=== PATIENT | male | born 1995 | race American Indian/Alaskan Native ===

== ENCOUNTER 2019-05-26 14:23 | Emergency (ER) | payer MEDICAID ==
--- NOTE | 2019-05-26 15:07 | Event Note ---
Date of service: 05/26/19 Face to Face: This is a 24-year-old gentleman who is not known to this provider previously. Patient has a history of right lower quadrant colostomy, reports a history of Crohn's disease, presenting to the ER with a complaint of nausea, vomiting, weakness and abdominal cramping. He reports that hydromorphone is typically the only pain medication which improved his symptoms. Upon my initial evaluation, patient resting comfortably, on a cell phone, and his stretcher, noted to be sending messages and playing video games on his cellular phone. He is afebrile with reassuring vital signs, clinically sober, abdomen soft and benign, without rebound, guarding or peritoneal signs. Ostomy is examined with nurse repair armature winder helper, no significant abnormalities noted. Patient at this point time does not meet criteria for administration of opioid therapy. He is suitable for a trial of nonnarcotic therapy, including Pepcid, Zofran, Carafate, CT scan abdomen pelvis ordered. Urinalysis is reviewed and appreciated, patient does not endorse any irritative or obstructive urinary symptoms. If objective imaging studies unremarkable, which I anticipate, the patient should be suitable to follow up with an outpatient literacy tutor. Vital Signs 05/26/19 05/26/19 14:54 15:01 Temperature 99.5 F 99.5 F Pulse Rate 94 H 94 H Respiratory 17 17 Rate Blood Pressure 111/74 Blood Pressure 111/74 [Left] O2 Sat by Pulse 98 98 Oximetry Lab Results 05/26/19 05/26/19 05/26/19 Range/Units 15:33 15:33 15:48 WBC 9.3 (4.5-11.0) K/mm3 RBC 4.28 (3.65-5.03) M/mm3 Hgb 13.1 (11.8-15.2) gm/dl Hct 39.2 (35.5-45.6) % MCV 92 (84-94) fl MCH 31 (28-32) pg MCHC 34 (32-34) % RDW 15.0 (13.2-15.2) % Plt Count 205 (140-440) K/mm3 Sodium 136 L (137-145) mmol/L Potassium 5.0 (3.6-5.0) mmol/L Chloride 100.0 (98-107) mmol/L Carbon Dioxide 22 (22-30) mmol/L Anion Gap 19 mmol/L BUN 19 (9-20) mg/dL Creatinine 0.9 (0.8-1.5) mg/dL Estimated GFR > 60 ml/min BUN/Creatinine Ratio 21 % Glucose 101 H (75-100) mg/dL Calcium 9.0 (8.4-10.2) mg/dL Total Bilirubin 0.50 (0.1-1.2) mg/dL AST 14 (5-40) units/L ALT 7 (7-56) units/L Alkaline Phosphatase 51 (35-129) units/L Total Protein 8.5 H (6.3-8.2) g/dL Albumin 3.9 (3.9-5) g/dL Albumin/Globulin Ratio 0.8 % Lipase 29 (13-60) units/L Urine Color Yellow (Yellow) Urine Turbidity Slightly-cloudy (Clear) Urine pH 6.0 (5.0-7.0) Ur Specific [place] 1.026 (1.003-1.030) Urine Protein 100 mg/dl (Negative) mg/dL Urine Glucose (UA) Neg (Negative) mg/dL Urine Ketones 20 (Negative) mg/dL Urine Blood Sm (Negative) Urine Nitrite Neg (Negative) Urine Bilirubin Neg (Negative) Urine Urobilinogen < 2.0 (<2.0) mg/dL Ur Leukocyte Esterase Neg (Negative) Urine WBC (Auto) 4.0 (0.0-6.0) /HPF Urine RBC (Auto) 7.0 (0.0-6.0) /HPF U Epithel Cells (Auto) 1.0 (0-13.0) /HPF Urine Bacteria (Auto) 1+ (Negative) /HPF Urine Mucus 3+ /HPF Urine Opiates Screen Urine Methadone Screen Ur Barbiturates Screen Ur Phencyclidine Scrn Ur Amphetamines Screen U Benzodiazepines Scrn Urine Cocaine Screen 05/26/19 Range/Units 15:48 WBC (4.5-11.0) K/mm3 RBC (3.65-5.03) M/mm3 Hgb (11.8-15.2) gm/dl Hct (35.5-45.6) % MCV (84-94) fl MCH (28-32) pg MCHC (32-34) % RDW (13.2-15.2) % Plt Count (140-440) K/mm3 Sodium (137-145) mmol/L Potassium (3.6-5.0) mmol/L Chloride (98-107) mmol/L Carbon Dioxide (22-30) mmol/L Anion Gap mmol/L BUN (9-20) mg/dL Creatinine (0.8-1.5) mg/dL Estimated GFR ml/min BUN/Creatinine Ratio % Glucose (75-100) mg/dL Calcium (8.4-10.2) mg/dL Total Bilirubin (0.1-1.2) mg/dL AST (5-40) units/L ALT (7-56) units/L Alkaline Phosphatase (35-129) units/L Total Protein (6.3-8.2) g/dL Albumin (3.9-5) g/dL Albumin/Globulin Ratio % Lipase (13-60) units/L Urine Color (Yellow) Urine Turbidity (Clear) Urine pH (5.0-7.0) Ur Specific [place] (1.003-1.030) Urine Protein (Negative) mg/dL Urine Glucose (UA) (Negative) mg/dL Urine Ketones (Negative) mg/dL Urine Blood (Negative) Urine Nitrite (Negative) Urine Bilirubin (Negative) Urine Urobilinogen (<2.0) mg/dL Ur Leukocyte Esterase (Negative) Urine WBC (Auto) (0.0-6.0) /HPF Urine RBC (Auto) (0.0-6.0) /HPF U Epithel Cells (Auto) (0-13.0) /HPF Urine Bacteria (Auto) (Negative) /HPF Urine Mucus /HPF Urine Opiates Screen Presumptive negative Urine Methadone Screen Presumptive negative Ur Barbiturates Screen Presumptive negative Ur Phencyclidine Scrn Presumptive negative Ur Amphetamines Screen Presumptive negative U Benzodiazepines Scrn Presumptive negative Urine Cocaine Screen Presumptive negative
[2019-05-26] MEDS ORDERED: SODIUM CHLORIDE 0.9% 1000 ML 1,000 ML IV ONE (15:28)
[2019-05-26 15:53] LABS: Hematocrit 39.2 % (35.5-45.6); Hemoglobin 13.1 gm/dl (11.8-15.2); Mean Corpuscular HGB Conc 34 % (32-34); Mean Corpuscular Volume 92 fl (84-94); Platelet Count 205 K/mm3 (140-440); Red Blood Count 4.28 M/mm3 (3.65-5.03)
[2019-05-26 15:57] LABS: Bacteria,Urine 1+ /HPF (Negative); Bilirubin,Urine NEG (Negative); Blood,Urine SM (Negative); Color,Urine Yellow (Yellow); Mucus,Urine 3+ /HPF; Urobilinogen,Urine < 2.0 mg/dL (<2.0)
[2019-05-26] MEDS ORDERED: ONDANSETRON 4 MG ODT TAB PO PRN (15:57)
[2019-05-26] MEDS ORDERED: SUCRALFATE 1 GM/10 ML ORAL LIQD PO ONE (16:00)
[2019-05-26] MEDS ORDERED: FAMOTIDINE 20 MG/2 ML INJ IV ONE (16:00)
[2019-05-26 16:01] LABS: Amphetamine Screen,Urine PRESUMPTIVE NEGATIVE; Benzodiazepines Screen,Urine PRESUMPTIVE NEGATIVE; Cocaine Screen,Urine PRESUMPTIVE NEGATIVE; Methadone Screen,Urine PRESUMPTIVE NEGATIVE; Opiate Screen,Urine PRESUMPTIVE NEGATIVE
--- NOTE | 2019-05-26 16:01 | Emergency Department Report ---
<PHUONG LOPEZ - Last Filed: 05/26/19 16:21> ED N/V/D HPI - General Chief complaint: Nausea/Vomiting/Diarrhea Stated complaint: N/V/DEHYDRATION Time Seen by Provider: 05/26/19 15:06 Source: patient, EMS Mode of arrival: Wheelchair Limitations: No Limitations - History of Present Illness Initial comments: 24-year-old -[place] male(standing in the bonilla without any any acute distress. Patient comes in for nausea and intermittently vomiting is intermittent. Patient reports intermittent dizziness, intermittent hot flashes intermittent weakness. Patient reports he has had a subjective fever. His last dose of Tylenol was yesterday. Patient reports that he has a colostomy bag on the right side secondary to Crohn's disease. Patient states that his surgeon is Dr. Lezama and he has an appointment on 06/02/2019. MD complaint: nausea, vomiting, abdominal pain Onset/Timin -: week(s) Description of Vomiting: food contents Associated Abdominal Pain: Yes Location: [place] Radiation: none Severity: mild Pain Scale: 5 Quality: aching Consistency: intermittent Improves with: none Worsens with: none Associated Symptoms: fever/chills, nausea/vomiting (immediately) - Related Data Previous Rx's Medication Instructions Recorded Last Taken Type Acetaminophen [Non-Aspirin Extra 500 mg PO Q6HR PRN #30 tablet 05/26/19 Unknown Rx Strength] Ciprofloxacin HCl [Ciprofloxacin 500 mg PO Q12HR #14 tab 05/26/19 Unknown Rx TAB] Famotidine [Pepcid] 20 mg PO BID PRN #20 tablet 05/26/19 Unknown Rx Rasheeda Root [Rasheeda] 250 mg PO QID PRN #30 capsule 05/26/19 Unknown Rx Ibuprofen [Motrin] 600 mg PO Q8H PRN #30 tablet 05/26/19 Unknown Rx Metoclopramide [Reglan] 10 mg PO QID PRN #30 tablet 05/26/19 Unknown Rx Promethazine HCl [Phenergan SUPPOS] 25 mg RC Q6HR PRN #15 supp.rect 05/26/19 Unknown Rx Allergies Allergy/AdvReac Type Severity Reaction Status Date / Time morphine Allergy Hives Verified 05/26/19 20:08 tramadol Allergy Hives Verified 05/26/19 20:08 ED Past Medical Hx - Past Medical History Previous Medical History?: Yes Additional medical history: crohn's disease - Surgical History Past Surgical History?: Yes Additional Surgical History: ostomy - Social History Smoking Status: Never Smoker Substance Use Type: Marijuana - Medications Home Medications: Home Medications Medication Instructions Recorded Confirmed Last Taken Type Acetaminophen [Non-Aspirin Extra 500 mg PO Q6HR PRN #30 tablet 05/26/19 Unknown Rx Strength] Ciprofloxacin HCl [Ciprofloxacin 500 mg PO Q12HR #14 tab 05/26/19 Unknown Rx TAB] Famotidine [Pepcid] 20 mg PO BID PRN #20 tablet 05/26/19 Unknown Rx Rasheeda Root [Rasheeda] 250 mg PO QID PRN #30 capsule 05/26/19 Unknown Rx Ibuprofen [Motrin] 600 mg PO Q8H PRN #30 tablet 05/26/19 Unknown Rx Metoclopramide [Reglan] 10 mg PO QID PRN #30 tablet 05/26/19 Unknown Rx Promethazine HCl [Phenergan SUPPOS] 25 mg RC Q6HR PRN #15 supp.rect 05/26/19 Unknown Rx ED Physical Exam - General Limitations: No Limitations General appearance: alert, in no apparent distress - Head Head exam: Present: atraumatic, normocephalic - Eye Eye exam: Present: normal appearance - ENT ENT exam: Present: mucous membranes moist - Neck Neck exam: Present: normal inspection, full ROM. Absent: tenderness, lymphadenopathy - Respiratory Respiratory exam: Present: normal lung sounds bilaterally. Absent: respiratory distress - Cardiovascular Cardiovascular Exam: Present: regular rate, normal rhythm. Absent: systolic murmur, diastolic murmur, rubs, gallop - GI/Abdominal GI/Abdominal exam: Present: soft, tenderness (no grimacing), normal bowel sounds, other (colostomy bag on right abdomen ostomy looks nice and pink transfer necrosis. Midline abdominal scar). Absent: distended, guarding, rebound - Rectal Rectal exam: Present: deferred - Back Exam Back exam: Present: normal inspection, full ROM. Absent: tenderness, vertebral tenderness - Neurological Exam Neurological exam: Present: alert, oriented X3, normal gait - Psychiatric Psychiatric exam: Present: normal mood - Expanded Psychiatric Exam Expanded Focused psych exam: Present: other (disorganized thought) - Skin Skin exam: Present: warm, dry, intact, normal color. Absent: rash ED Medical Decision Making - Lab Data Result diagrams: 05/26/19 15:33 05/26/19 15:33 - Medical Decision Making 24-year-old -[place] male(standing in the bonilla without any any acute distress. Patient comes in for nausea and intermittently vomiting is intermittent. Patient reports intermittent dizziness, intermittent hot flashes intermittent weakness. Patient reports he has had a subjective fever. His last dose of Tylenol was yesterday. Patient reports that he has a colostomy bag on the right side secondary to Crohn's disease. Patient states that his surgeon is Dr. Lezama and he has an appointment on 06/02/2019. Patient has been evaluated by this provider. Patient exhibits some concerns for hyperemesis from cannabis. UDS screening has been ordered as well as urinalysis and labs. CT scan of abdomen with contrast is ordered. Discussed patient's case with supervising doctor . ED Disposition Clinical Impression: History of Crohn's disease Disposition: DC- TO HOME OR SELFCARE Condition: Stable Additional Instructions: Take the antibiotic as directed, nausea medication as needed and directed. Advance diet as tolerated. Drink plenty of fluids. Do not take metformin medication for the next 2 days, if patient takes his medication. Recommend continuing current outpatient medications otherwise, and recommend the patient follow up with a primary care doctor or gimp buttonhole machine operator within the next 5-7 days. Urine toxicology screen showed the presence of marijuana. if The patient is consuming marijuana, or having secondhand exposure to marijuana, recommend avoidance of exposure to marijuana, as this may exacerbate her underlying symptoms. CT scan abdomen and pelvis showed no acute or emergent findings, however, incidental findings were noted. Please have your primary care doctor or gimp buttonhole machine operator contact the medical records department to obtain CT scan report and follow-up on an nonemergent incidental findings. Return to the emergency room right away with it, worsened or different symptoms, or symptoms not present on the initial emergency room evaluation. Prescriptions: Ciprofloxacin HCl [Ciprofloxacin TAB] 500 mg PO Q12HR #14 tab Rasheeda Root [Rasheeda] 250 mg PO QID PRN #30 capsule PRN Reason: Nausea Ibuprofen [Motrin] 600 mg PO Q8H PRN #30 tablet PRN Reason: Pain Acetaminophen [Non-Aspirin Extra Strength] 500 mg PO Q6HR PRN #30 tablet PRN Reason: Pain , Severe (7-10) Famotidine [Pepcid] 20 mg PO BID PRN #20 tablet PRN Reason: Pain , Severe (7-10) Promethazine HCl [Phenergan SUPPOS] 25 mg RC Q6HR PRN #15 supp.rect PRN Reason: Nausea Metoclopramide [Reglan] 10 mg PO QID PRN #30 tablet PRN Reason: Nausea Referrals: [facility] [Provider Group] - 3-5 Days <CLARITZAPAT - Last Filed: 05/26/19 23:22> ED Review of Systems ROS: Stated complaint: N/V/DEHYDRATION Other details as noted in HPI ED Course Vital Signs 05/26/19 05/26/19 05/26/19 14:54 15:01 19:16 Temperature 99.5 F 99.5 F 100.1 F H Pulse Rate 94 H 94 H 89 Respiratory 17 17 15 Rate Blood Pressure 111/74 Blood Pressure 111/74 109/69 [Left] O2 Sat by Pulse 98 98 98 Oximetry - Reevaluation(s) Reevaluation #1: 05/26/19 19:30 CT scan abdomen and pelvis reviewed and appreciated. No active vomiting noted. Incidental findings noted. Patient very engaged with his cellular phone. We'll start him empirically on antibiotics, he'll need to follow up with his outpatient gimp buttonhole machine operator. At this point in time, patient does not meet criteria for admission or hospitalization. 05/26/19 19:35 ED Medical Decision Making - Lab Data Result diagrams: 05/26/19 15:33 05/26/19 15:33 Vital Signs 05/26/19 05/26/19 05/26/19 14:54 15:01 19:16 Temperature 99.5 F 99.5 F 100.1 F H Pulse Rate 94 H 94 H 89 Respiratory 17 17 15 Rate Blood Pressure 111/74 Blood Pressure 111/74 109/69 [Left] O2 Sat by Pulse 98 98 98 Oximetry Lab Results 05/26/19 05/26/19 05/26/19 Range/Units 15:33 15:33 15:48 WBC 9.3 (4.5-11.0) K/mm3 RBC 4.28 (3.65-5.03) M/mm3 Hgb 13.1 (11.8-15.2) gm/dl Hct 39.2 (35.5-45.6) % MCV 92 (84-94) fl MCH 31 (28-32) pg MCHC 34 (32-34) % RDW 15.0 (13.2-15.2) % Plt Count 205 (140-440) K/mm3 Sodium 136 L (137-145) mmol/L Potassium 5.0 (3.6-5.0) mmol/L Chloride 100.0 (98-107) mmol/L Carbon Dioxide 22 (22-30) mmol/L Anion Gap 19 mmol/L BUN 19 (9-20) mg/dL Creatinine 0.9 (0.8-1.5) mg/dL Estimated GFR > 60 ml/min BUN/Creatinine Ratio 21 % Glucose 101 H (75-100) mg/dL Calcium 9.0 (8.4-10.2) mg/dL Total Bilirubin 0.50 (0.1-1.2) mg/dL AST 14 (5-40) units/L ALT 7 (7-56) units/L Alkaline Phosphatase 51 (35-129) units/L Total Protein 8.5 H (6.3-8.2) g/dL Albumin 3.9 (3.9-5) g/dL Albumin/Globulin Ratio 0.8 % Lipase 29 (13-60) units/L Urine Color Yellow (Yellow) Urine Turbidity Slightly-cloudy (Clear) Urine pH 6.0 (5.0-7.0) Ur Specific [place] 1.026 (1.003-1.030) Urine Protein 100 mg/dl (Negative) mg/dL Urine Glucose (UA) Neg (Negative) mg/dL Urine Ketones 20 (Negative) mg/dL Urine Blood Sm (Negative) Urine Nitrite Neg (Negative) Urine Bilirubin Neg (Negative) Urine Urobilinogen < 2.0 (<2.0) mg/dL Ur Leukocyte Esterase Neg (Negative) Urine WBC (Auto) 4.0 (0.0-6.0) /HPF Urine RBC (Auto) 7.0 (0.0-6.0) /HPF U Epithel Cells (Auto) 1.0 (0-13.0) /HPF Urine Bacteria (Auto) 1+ (Negative) /HPF Urine Mucus 3+ /HPF Urine Opiates Screen Urine Methadone Screen Ur Barbiturates Screen Ur Phencyclidine Scrn Ur Amphetamines Screen U Benzodiazepines Scrn Urine Cocaine Screen U Marijuana (THC) Screen Drugs of Abuse Note 05/26/19 Range/Units 15:48 WBC (4.5-11.0) K/mm3 RBC (3.65-5.03) M/mm3 Hgb (11.8-15.2) gm/dl Hct (35.5-45.6) % MCV (84-94) fl MCH (28-32) pg MCHC (32-34) % RDW (13.2-15.2) % Plt Count (140-440) K/mm3 Sodium (137-145) mmol/L Potassium (3.6-5.0) mmol/L Chloride (98-107) mmol/L Carbon Dioxide (22-30) mmol/L Anion Gap mmol/L BUN (9-20) mg/dL Creatinine (0.8-1.5) mg/dL Estimated GFR ml/min BUN/Creatinine Ratio % Glucose (75-100) mg/dL Calcium (8.4-10.2) mg/dL Total Bilirubin (0.1-1.2) mg/dL AST (5-40) units/L ALT (7-56) units/L Alkaline Phosphatase (35-129) units/L Total Protein (6.3-8.2) g/dL Albumin (3.9-5) g/dL Albumin/Globulin Ratio % Lipase (13-60) units/L Urine Color (Yellow) Urine Turbidity (Clear) Urine pH (5.0-7.0) Ur Specific [place] (1.003-1.030) Urine Protein (Negative) mg/dL Urine Glucose (UA) (Negative) mg/dL Urine Ketones (Negative) mg/dL Urine Blood (Negative) Urine Nitrite (Negative) Urine Bilirubin (Negative) Urine Urobilinogen (<2.0) mg/dL Ur Leukocyte Esterase (Negative) Urine WBC (Auto) (0.0-6.0) /HPF Urine RBC (Auto) (0.0-6.0) /HPF U Epithel Cells (Auto) (0-13.0) /HPF Urine Bacteria (Auto) (Negative) /HPF Urine Mucus /HPF Urine Opiates Screen Presumptive negative Urine Methadone Screen Presumptive negative Ur Barbiturates Screen Presumptive negative Ur Phencyclidine Scrn Presumptive negative Ur Amphetamines Screen Presumptive negative U Benzodiazepines Scrn Presumptive negative Urine Cocaine Screen Presumptive negative U Marijuana (THC) Screen Presumptive positive Drugs of Abuse Note Disclamer - Radiology Data Radiology results: report reviewed, image reviewed Print Report Referring Physician: PHUONG LOPEZ Patient Name: ZAHEER BANEGAS Date of : 1995 Sex: Male Report Date: 2019-05-26 Report Status: Finalized Findings [facility] [address] [place] [address] Cat Scan Report Signed Patient: ZAHEER BANEGAS MR#: [id number] 0 : 1995 Acct:[id number] Age/Sex: 24 / M ADM Date: 05/26/19 Loc: ED Attending Dr: Ordering Physician: SOPHIA TALAVERA Date of Service: 05/26/19 Procedure(s): CT abdomen pelvis w con Accession Number(s): [id number] cc: SOPHIA TALAVERA CT ABDOMEN AND PELVIS WITH CONTRAST INDICATION: abd pain. TECHNIQUE: Axial CT images were obtained through the abdomen and pelvis after 100 cc Omnipaque [address] scans at this location are performed using CT dose reduction for [employer] by means of automated exposure control. COMPARISON: None available. FINDINGS: LOWER CHEST: No significant abnormality. LIVER: No significant abnormality. GALLBLADDER: No significant abnormality. BILE DUCTS: No significant abnormality. PANCREAS: No significant abnormality. SPLEEN: No significant abnormality. ADRENALS: No significant abnormality. RIGHT KIDNEY and URETER: No significant abnormality. LEFT KIDNEY and URETER: No significant abnormality. STOMACH and SMALL BOWEL: Right lower quadrant ileostomy. No bowel obstruction. COLON: There is a fractured retained linear catheter within the rectum seen best on image 162. Left ant-colectomy APPENDIX: No significant abnormality. PERITONEUM: High density retained barium along the liver and splenic capsule. No free fluid. No free air. No fluid collection. LYMPH NODES: No significant adenopathy. AORTA and ARTERIES: No significant abnormality. IVC and VEINS: No significant abnormality. URINARY BLADDER: No significant abnormality. REPRODUCTIVE ORGANS: No significant abnormality. ADDITIONAL FINDINGS: None. SKELETAL SYSTEM: No significant abnormality. IMPRESSION: 1. Retained fractured catheter within the rectum. 2. Right lower quadrant ileostomy and postsurgical change without acute inflammatory process or bowel obstruction Signer Name: Panchito Pan MD Signed: 05/26/2019 6:57 PM Workstation Name: [id number] Transcribed By: TL Dictated By: Panchito Pan MD Electronically Authenticated By: Panchito Pan MD Signed Date/Time: 05/26/191856 DD/ 51 Critical care attestation.: If time is entered above; I have spent that time in minutes in the direct care of this critically ill patient, excluding procedure time. ED Disposition Is pt being admited?: No Does the pt Need Aspirin: No
[2019-05-26 16:07] LABS: Alanine Aminotransferase 7 units/L (7-56); Albumin 3.9 g/dL (3.9-5); BUN/Creatinine Ratio 21; Blood Urea Nitrogen 19 mg/dL (9-20); Hemolysis Index 11
[2019-05-26 16:17] LABS: Cannabinoid Screen,Urine PRESUMPTIVE POSITIVE
--- NOTE | 2019-05-26 19:01 | Cat Scan Report ---
CT ABDOMEN AND PELVIS WITH CONTRAST INDICATION: abd pain. TECHNIQUE: Axial CT images were obtained through the abdomen and pelvis after 100 cc Omnipaque [address] scans at this location are performed using CT dose reduction for [place] by means of automated exposure control. COMPARISON: None available. FINDINGS: LOWER CHEST: No significant abnormality. LIVER: No significant abnormality. GALLBLADDER: No significant abnormality. BILE DUCTS: No significant abnormality. PANCREAS: No significant abnormality. SPLEEN: No significant abnormality. ADRENALS: No significant abnormality. RIGHT KIDNEY and URETER: No significant abnormality. LEFT KIDNEY and URETER: No significant abnormality. STOMACH and SMALL BOWEL: Right lower quadrant ileostomy. No bowel obstruction. COLON: There is a fractured retained linear catheter within the rectum seen best on image 162. Left h mirta-colectomy APPENDIX: No significant abnormality. PERITONEUM: High density retained barium along the liver and splenic capsule. No free fluid. No free air. No fluid collection. LYMPH NODES: No significant adenopathy. AORTA and ARTERIES: No significant abnormality. IVC and VEINS: No significant abnormality. URINARY BLADDER: No significant abnormality. REPRODUCTIVE ORGANS: No significant abnormality. ADDITIONAL FINDINGS: None. SKELETAL SYSTEM: No significant abnormality. IMPRESSION: 1. Retained fractured catheter within the rectum. 2. Right lower quadrant ileostomy and postsurgical change without acute inflammatory process or bowel obstruction Signer Name: Panchito Pan MD Signed: 05/26/2019 6:57 PM Workstation Name: [id number]
[2019-05-26 19:17] VITALS: BP 109/69
[2019-05-26] MEDS ORDERED: ACETAMINOPHEN 325 MG TAB PO ONE (19:37)
== END 2019-05-26 20:35 | disposition home or self-care (01) ==
LOC: ED 14:23
DX: K50.90 Crohn's disease, unspecified, without complications (principal); F12.10 Cannabis abuse, uncomplicated; Z79.899 Other long term (current) drug therapy; Z88.6 Allergy status to analgesic agent
CPT/HCPCS: 36415; 74177; 80053; 80307; 81001; 83690; 85027; 96361; 96374; 99284; J7030; Q9967